=== PATIENT | male | born 1940 | race Caucasian/White ===

== ENCOUNTER 2021-06-26 16:11 | Emergency (ER) | payer MEDICARE | END 2021-06-26 17:05 | disposition home or self-care (01) | LOC: VM.ED 16:11 | DX: R33.9 Retention of urine, unspecified (principal); E78.00 Pure hypercholesterolemia, unspecified; I10 Essential (primary) hypertension; E11.9 Type 2 diabetes mellitus without complications; Z88.8 Allergy status to other drugs, medicaments and biological substances; Z79.82 Long term (current) use of aspirin; Z79.4 Long term (current) use of insulin; Z79.02 Long term (current) use of antithrombotics/antiplatelets; Z79.899 Other long term (current) drug therapy | CPT/HCPCS: 51702; 99283-25; 99284 ==

== ENCOUNTER 2022-12-08 11:47 | Emergency (ER) | payer MEDICARE | END 2022-12-08 12:12 | disposition home or self-care (01) | LOC: VM.ED 11:47 | DX: I10 Essential (primary) hypertension (principal); E78.00 Pure hypercholesterolemia, unspecified; E10.9 Type 1 diabetes mellitus without complications; Z79.82 Long term (current) use of aspirin; Z79.02 Long term (current) use of antithrombotics/antiplatelets; Z79.899 Other long term (current) drug therapy; Z88.8 Allergy status to other drugs, medicaments and biological substances | CPT/HCPCS: 99283 ==

== ENCOUNTER 2023-08-08 17:32 | Emergency (ER) | payer MEDICARE ==
[2023-08-08] MEDS ORDERED: Sodium Chloride 0.9% 10 ML Syringe FLUSH PRN (17:38)
[2023-08-08 17:50] LABS: BASOPHILS PERCENT AUTO 0.1 % (0.2-1.2); HEMATOCRIT 19.1 % (40.0-52.0); IMMATURE GRAN ABSOLUTE AUTO 0.27 x10^3/uL (0.00-0.07); LYMPHOCYTES ABSOLUTE AUTO 4.4 x10^3/uL (1.0-4.8); LYMPHOCYTES PERCENT AUTO 32.5 % (25.0-50.0); MEAN CORPUSCULAR HEMOGLOBIN 32.8 pg (26.0-32.0); MEAN CORPUSCULAR HGB CONC 32.5 g/dL (32.0-36.0); MEAN CORPUSCULAR VOLUME 101.1 fL (78.0-93.0); MONOCYTES ABSOLUTE AUTO 1.1 x10^3/uL (0.0-0.8); MONOCYTES PERCENT AUTO 7.8 % (2.0-11.0); NEUTROPHILS ABSOLUTE AUTO 7.9 x10^3/uL (1.8-7.7); NEUTROPHILS PERCENT AUTO 57.6 % (50.0-80.0); PLATELET COUNT,PLT 332 x10^3/uL (130-400); RED BLOOD CELL COUNT 1.89 x10^6/uL (4.5-6.0); WHITE BLOOD CELL COUNT,WBC 13.7 x10^3/uL (4.0-10.0)
[2023-08-08 18:12] LABS: INR 0.9 (0.9-1.1); PROTHROMBIN TIME 9.3 SEC (8.9-11.5); PTT,PARTIAL THROMBOPLSTIN TIME 20.2 SEC (21.9-33.8)
[2023-08-08 18:14] LABS: LACTIC ACID 2.6 mmol/L (0.4-2.0)
[2023-08-08 18:19] LABS: HEMOGLOBIN 6.2 g/dL (14.0-18.0)
[2023-08-08 18:23] LABS: A/G RATIO 1.06; ALANINE AMINOTRANSFERASE,ALT 24 U/L (16-63); ALBUMIN 3.3 g/dL (3.4-5.0); ALKALINE PHOSPHATASE 70 U/L (46-116); ASPARTATE AMNIOTRANSFERASE,AST 19 U/L (15-37); BILIRUBIN TOTAL 0.2 mg/dL (0.2-1.0); BLOOD UREA NITROGEN,BUN 30 mg/dL (7-18); CALCIUM 8.6 mg/dL (8.5-10.1); CARBON DIOXIDE,CO2 26 mmol/L (21-32); CHLORIDE,CL 101 mmol/L (98-107); CREATININE 1.1 mg/dL (0.70-1.30); GLUCOSE RANDOM 140 mg/dL (70-99); MAGNESIUM 2.4 mg/dL (1.8-2.4); POTASSIUM,K 4.4 mmol/L (3.5-5.1); PROTEIN TOTAL,TP 6.4 g/dL (6.4-8.2); SODIUM,NA 132 mmol/L (136-145)
[2023-08-08 18:24] LABS: ANION GAP 9.4 mmol/L (5-15); C-REACTIVE PROTEIN < 0.50 mg/dL (<=0.50); ESTIMATED GFR 66 mL/min (>=60)
[2023-08-08] MEDS: Iopamidol 755 Mg/ML 100 ML Bottle IVPUSH ONE (18:56)
[2023-08-08] MEDS: Furosemide 20 MG/2 ML VIAL IV ONE (21:22)
== END 2023-08-08 21:48 | disposition short-term general hospital (02) ==
LOC: VM.ED 17:32
DX: D64.9 Anemia, unspecified (principal); C61 Malignant neoplasm of prostate; E10.9 Type 1 diabetes mellitus without complications; E78.00 Pure hypercholesterolemia, unspecified; I10 Essential (primary) hypertension; Z88.8 Allergy status to other drugs, medicaments and biological substances; Z79.82 Long term (current) use of aspirin; Z79.84 Long term (current) use of oral hypoglycemic drugs; Z79.02 Long term (current) use of antithrombotics/antiplatelets; Z79.4 Long term (current) use of insulin; Z79.899 Other long term (current) drug therapy
CPT/HCPCS: 36415; 36430; 71045; 74174; 80053; 82274; 83605; 83735; 84443; 85025; 85610; 85730; 86140; 86850; 86900; 86901; 86920; 86922; 94760; 96374; 99284; 99285-25; J1940; P9016; Q9967

== ENCOUNTER 2023-12-16 23:58 | Observation (INO) | payer MEDICARE ==
[2023-12-17] MEDS ORDERED: Sodium Chloride 0.9% 10 ML Syringe FLUSH PRN (00:02)
[2023-12-17 00:17] LABS: BASOPHILS PERCENT AUTO 0.1 % (0.2-1.2); HEMATOCRIT 32.6 % (40.0-52.0); HEMOGLOBIN 10.8 g/dL (14.0-18.0); IMMATURE GRAN ABSOLUTE AUTO 0.09 x10^3/uL (0.00-0.07); LYMPHOCYTES ABSOLUTE AUTO 0.7 x10^3/uL (1.0-4.8); LYMPHOCYTES PERCENT AUTO 9.1 % (25.0-50.0); MEAN CORPUSCULAR HEMOGLOBIN 30.2 pg (26.0-32.0); MEAN CORPUSCULAR HGB CONC 33.1 g/dL (32.0-36.0); MEAN CORPUSCULAR VOLUME 91.1 fL (78.0-93.0); MONOCYTES ABSOLUTE AUTO 0.2 x10^3/uL (0.0-0.8); MONOCYTES PERCENT AUTO 2.7 % (2.0-11.0); NEUTROPHILS ABSOLUTE AUTO 6.8 x10^3/uL (1.8-7.7); NEUTROPHILS PERCENT AUTO 86.9 % (50.0-80.0); PLATELET COUNT,PLT 249 x10^3/uL (130-400); RED BLOOD CELL COUNT 3.58 x10^6/uL (4.5-6.0); WHITE BLOOD CELL COUNT,WBC 7.8 x10^3/uL (4.0-10.0)
[2023-12-17 00:33] LABS: A/G RATIO 0.71; ALANINE AMINOTRANSFERASE,ALT 15 U/L (16-63); ALBUMIN 2.5 g/dL (3.4-5.0); ALKALINE PHOSPHATASE 90 U/L (46-116); ASPARTATE AMNIOTRANSFERASE,AST 18 U/L (15-37); BILIRUBIN TOTAL 0.7 mg/dL (0.2-1.0); BLOOD UREA NITROGEN,BUN 20 mg/dL (7-18); CARBON DIOXIDE,CO2 27 mmol/L (21-32); CHLORIDE,CL 102 mmol/L (98-107); CREATININE 1.2 mg/dL (0.70-1.30); GLUCOSE RANDOM 276 mg/dL (70-99); POTASSIUM,K 3.6 mmol/L (3.5-5.1); SODIUM,NA 141 mmol/L (136-145)
[2023-12-17 00:39] LABS: ANION GAP 15.6 mmol/L (5-15); ESTIMATED GFR 59 mL/min (>=60)
[2023-12-17] MEDS: Sodium Chloride 0.9% 1,000 ML IV SCH (00:50)
[2023-12-17 01:32] LABS: CORONAVIRUS COVID-19 NAA NEGATIVE (NEGATIVE)
[2023-12-17 01:33] LABS: INFLUENZA A NAA NEGATIVE (NEGATIVE); INFLUENZA B NAA NEGATIVE (NEGATIVE); RESPIRATORY SYNCYTIAL VIR NAA NEGATIVE (NEGATIVE)
[2023-12-17 01:38] LABS: BILIRUBIN,URINE SMALL (NEGATIVE); COLOR,URINE YELLOW (YELLOW); GLUCOSE,URINE NEGATIVE (NEGATIVE); KETONES,URINE NEGATIVE (NEGATIVE); LEUKOCYTE ESTERASE,URINE NEGATIVE (NEGATIVE); NITRITE,URINE NEGATIVE (NEGATIVE); OCCULT BLOOD,URINE NEGATIVE (NEGATIVE); PROTEIN,URINE 30 mg/dL (NEGATIVE); UROBILINOGEN,URINE 0.2 EU/dL (0.2)
[2023-12-17 01:39] LABS: APPEARANCE,URINE SLIGHTLY CLOUDY (CLEAR)
[2023-12-17 01:44] LABS: AMORPHOUS SEDIMENT,URINE FEW; BACTERIA,URINE FEW /HPF (NOT SEEN); HYALINE CASTS,URINE MODERATE; MUCUS,URINE FEW /LPF (NOT SEEN); RBC,URINE 0-5 /HPF (NOT SEEN); SQUAMOUS EPITHELIAL CELLS,UR NOT SEEN /HPF (NOT SEEN); WBC,URINE 0-5 /HPF (NOT SEEN)
[2023-12-17 01:45] LABS: GRANULAR CASTS,URINE FEW
[2023-12-17] MEDS: cefTRIAXone 2 GM Vial IVPUSH ONE (05:42)
[2023-12-17] MEDS ORDERED: 50% Dextrose in Water 50 ML Syringe IVPUSH PRN (08:26)
[2023-12-17] MEDS ORDERED: oxyCODONE 5 MG Tab PO PRN (08:26)
[2023-12-17] MEDS ORDERED: Prochlorperazine 5 MG Tab PO PRN (08:26)
[2023-12-17] MEDS ORDERED: Glucagon,Human Recombinant 1 MG Vial IM PRN (08:26)
[2023-12-17] MEDS ORDERED: Nitroglycerin 0.4 MG Tab.SL SL PRN (08:26)
[2023-12-17] MEDS ORDERED: Sennosides/Docusate Sodium 50-8.6 MG Tab PO SCH (08:30)
[2023-12-17] MEDS: Furosemide 40 MG/4 ML VIAL IV STA ×2 (08:31→10:58)
[2023-12-17] MEDS ORDERED: Bumetanide 1 MG Tab PO SCH (09:00)
[2023-12-17] MEDS: Insulin Glarg,Human.Rec.Analog 100 Unit/ML 10 ML Vial SUBCUT SCH (10:36)
[2023-12-17 11:10] LABS: BASE EXCESS ARTERIAL,POC -3 mmol/L ((-2)-3); HCO3 ARTERIAL,POC 21.4 mmol/L (21-28); O2 SATURATION ARTERIAL,POC 92.6 % (94-98); PCO2 ARTERIAL,POC 32 mmHg (35-48); PH ARTERIAL,POC 7.43 pH (7.35-7.45); PO2 ARTERIAL,POC 63 mmHg (83-108); TCO2 ARTERIAL,POC 21.1 mmol/L (22-29)
[2023-12-17 11:35] LABS: BASOPHILS PERCENT AUTO 0.1 % (0.2-1.2); HEMATOCRIT 34.1 % (40.0-52.0); HEMOGLOBIN 11.2 g/dL (14.0-18.0); IMMATURE GRAN ABSOLUTE AUTO 0.18 x10^3/uL (0.00-0.07); LYMPHOCYTES ABSOLUTE AUTO 1.1 x10^3/uL (1.0-4.8); LYMPHOCYTES PERCENT AUTO 5.7 % (25.0-50.0); MEAN CORPUSCULAR HEMOGLOBIN 30.5 pg (26.0-32.0); MEAN CORPUSCULAR HGB CONC 32.8 g/dL (32.0-36.0); MEAN CORPUSCULAR VOLUME 92.9 fL (78.0-93.0); MONOCYTES ABSOLUTE AUTO 1.2 x10^3/uL (0.0-0.8); MONOCYTES PERCENT AUTO 5.9 % (2.0-11.0); NEUTROPHILS ABSOLUTE AUTO 17.1 x10^3/uL (1.8-7.7); NEUTROPHILS PERCENT AUTO 87.4 % (50.0-80.0); RED BLOOD CELL COUNT 3.67 x10^6/uL (4.5-6.0); WHITE BLOOD CELL COUNT,WBC 19.6 x10^3/uL (4.0-10.0)
[2023-12-17 11:55] LABS: PLATELET COUNT,PLT 305 x10^3/uL (130-400)
[2023-12-17] MEDS ORDERED: Furosemide 40 MG/4 ML VIAL IV ONE (12:00)
[2023-12-17 12:01] LABS: CREATININE 1.1 mg/dL (0.70-1.30); EST CRCL DRUG DOSING (CG) 41.11 mL/min; POTASSIUM,K 3.9 mmol/L (3.5-5.1)
[2023-12-17 12:03] LABS: ANION GAP 16.9 mmol/L (5-15)
[2023-12-17] MEDS: Calcium Carbonate/Vitamin D3 1250 MG-5 MCG Tab PO SCH (12:45)
[2023-12-17] MEDS: Multivitamin Tab PO SCH (12:45)
[2023-12-17] MEDS: predniSONE 5 MG Tab PO SCH (12:45)
[2023-12-17] MEDS: amLODIPine 10 MG Tab PO SCH (12:45)
[2023-12-17] MEDS: Aspirin 81 MG Tab.EC PO SCH (12:45)
[2023-12-17] MEDS: Oxybutynin 5 MG Tab.ER PO SCH (12:45)
[2023-12-17] MEDS: Losartan 50 MG Tab PO SCH (12:45)
[2023-12-17] MEDS: Lactobacillus Rhamnosus GG (Probiotic) Cap PO SCH (12:45)
[2023-12-17] MEDS: atorvaSTATin 10 MG Tab PO SCH (12:45)
[2023-12-17] MEDS: metroNIDAZOLE/Normal Saline 500 MG in Premix Bag 1 BAG IV ONE (12:46)
[2023-12-17] MEDS: Metoprolol Succinate 25 MG Tab.ER PO SCH (12:46)
[2023-12-17] MEDS: VANCOmycin 1.5 GM/300 ML 1.5 GM in Premix Bag 1 BAG IV ONE (12:46)
[2023-12-17] MEDS: Cefepime 2 GM Vial IVPUSH ONE (12:46)
[2023-12-17] MEDS: Cyanocobalamin (Vitamin B12) 1,000 MCG Tab PO SCH (12:46)
[2023-12-17] MEDS: Bumetanide 2.5 MG/10 ML MDV IVPUSH ONE (12:47)
[2023-12-17] MEDS: Insulin Lispro 100 Units/ML 3 ML Vial SUBCUT SCH (12:47)
[2023-12-17] MEDS: Piperacillin/Tazobactam 4.5 GM in Sodium Chloride 0.9% 100 ML IV ONE (12:49)
[2023-12-17] MEDS ORDERED: Piperacillin/Tazobactam 4.5 GM in Sodium Chloride 0.9% 100 ML IV SCH (15:30)
[2023-12-17] MEDS ORDERED: Omeprazole 20 MG Cap.CR PO SCH (21:00)
[2023-12-17] MEDS ORDERED: Insulin Glarg,Human.Rec.Analog 100 Unit/ML 10 ML Vial SUBCUT SCH (21:00)
[2023-12-17] MEDS ORDERED: Latanoprost 0.005% Ophth Soln 2.5 ML Bottle EYEBOTH SCH (21:00)
[2023-12-18] MEDS ORDERED: cefTRIAXone 2 GM Vial IVPUSH SCH (06:00)
== END 2023-12-17 12:30 | disposition short-term general hospital (02) ==
LOC: VM.ED 23:58 → VM.MS 12-17 02:09
PROVIDERS: ADMIT Nurse Practitioner Family; ATTEND Family Medicine
DX: J96.01 Acute respiratory failure with hypoxia (principal); I10 Essential (primary) hypertension; E10.9 Type 1 diabetes mellitus without complications; C61 Malignant neoplasm of prostate; E78.00 Pure hypercholesterolemia, unspecified; E87.20 Acidosis, unspecified; I25.10 Atherosclerotic heart disease of native coronary artery without angina pectoris; I25.2 Old myocardial infarction; G47.33 Obstructive sleep apnea (adult) (pediatric); Z95.5 Presence of coronary angioplasty implant and graft; Z79.899 Other long term (current) drug therapy; Z88.8 Allergy status to other drugs, medicaments and biological substances
CPT/HCPCS: 0241U; 36415; 80048; 80053; 81001; 82803; 82947; 83605; 83880; 84484; 85025; 87040; 93005; 94760; 96360; 96361; 99285; J0696; J1815; J1940; J7030; 36600; 71045; 87147; 99284